=== PATIENT | male | born 1960 | race African-American/Black ===

== ENCOUNTER → 2021-04-15 | Day surgery (SDC) | payer BC ==
[~2021-04-15] MED LIST: FUROSEMIDE40 MG PO; GLIPIZIDE5 MG PO; LISINOPRIL10 MG PO; NEURONTIN400 MG PO; OR PHACO EYE KIT ONE; PREOP PHACO EYE KIT ONE
[2021-04-15 17:05] VITALS: BP 142/87
== END | disposition home or self-care (01) ==
LOC: OR 01:50
PROVIDERS: ATTEND Ophthalmology
DX: H25.12 Age-related nuclear cataract, left eye (principal); H27.8 Other specified disorders of lens; H18.20 Unspecified corneal edema; M06.9 Rheumatoid arthritis, unspecified; M19.90 Unspecified osteoarthritis, unspecified site; E11.9 Type 2 diabetes mellitus without complications; I11.0 Hypertensive heart disease with heart failure; I50.9 Heart failure, unspecified; Z01.812 Encounter for preprocedural laboratory examination; Z20.822 Contact with and (suspected) exposure to COVID-19; Z79.84 Long term (current) use of oral hypoglycemic drugs; Z79.899 Other long term (current) drug therapy
CPT/HCPCS: 36415; 66850; 82948; U0002